=== PATIENT | male | born 1955 | race Caucasian/White ===

== ENCOUNTER 2019-10-01 14:31 | Outpatient (CLI) | payer OTHER, SELFPAY ==
[2019-10-04 01:05] LABS: Infliximab 8.4 mcg/mL
== END 2019-10-01 14:51 ==
PROVIDERS: Visit Provider Internal Medicine Gastroenterology
DX: K51.919 Ulcerative colitis, unspecified with unspecified complications (principal)
CPT/HCPCS: 36415; 82397